=== PATIENT | female | born 1990 | race Caucasian/White ===

== ENCOUNTER 2016-09-30 20:28 | Inpatient (IN) ==
[2016-09-30] MEDS ORDERED: NS 1,000 ML IV ONE ×2 (21:36→22:42)
[2016-09-30] MEDS ORDERED: VANCOMYCIN 1 GM/NS 1 GM/250 ML IVPB IV ONE (21:37)
[2016-09-30] MEDS ORDERED: OFIRMEV 1000 MG/ISOTONIC SOLN 1,000 MG/100 ML BOTTLE IV ONE (21:37)
[2016-09-30] MEDS ORDERED: CLINDAMYCIN 600 MG/NS 600 MG/50 ML IVPB IV ONE (21:37)
[2016-09-30 22:01] LABS: MANUAL DIFF NEEDED? NO
[2016-09-30 22:04] LABS: BASO% 0.3 % (0.0-0.8); EOS# 0.03 X1000 (0.0-0.7); EOS% 0.2 % (0.0-10.0); HEMATOCRIT 41.6 % (37.0-47.0); HEMOGLOBIN 14.3 g/dL (12.0-16.0); IMM GRAN# 0.04 X1000 (0.0-0.04); IMM GRAN% 0.3 % (0.0-0.5); LYMPH# 2.03 X1000 (1.2-3.4); MCHC 34.4 g/dL (33-37); MCV 87.4 FL (81-99); MONO# 1.16 X1000 (0.11-0.59); MONO% 8.6 % (1.7-9.3); MPV 11.1 FL (7.4-10.4); NEUT% 75.6 % (42.2-75.2); PLT 241 X1000 (130-400); RBC 4.76 XMIL (4.2-5.4)
[2016-09-30 22:24] LABS: AGAP 14; ALBUMIN 4.3 g/dL (3.5-5.0); ALKALINE PHOSPHATASE 127 U/L (32-104); BUN 9 mg/dL (8-22); CHLORIDE 101 mmol/L (98-107); COSMO 271; GOT 19 U/L (10-30); GPT 24 U/L (10-36); POTASSIUM 3.5 mmol/L (3.5-5.1); SODIUM 136 mmol/L (136-145); TCO2 21 mmol/L (25-35); TOTAL PROTEIN 7.3 g/dL (6.3-8.3)
[2016-09-30] MEDS ORDERED: ZOFRAN IV ONE (22:41)
[2016-09-30] MEDS ORDERED: MORPHINE IV ONE (22:41)
[2016-09-30] MEDS ORDERED: ZOFRAN IV PRN (22:42)
[2016-09-30] MEDS ORDERED: MORPHINE IV PRN (22:42)
[2016-09-30] MEDS ORDERED: TYLENOL PO PRN (22:42)
--- NOTE | 2016-09-30 22:42 | PROVIDER DOCUMENTATION ---
This chart was entered by Roxanne Mckeon Scribe, acting as scribe for Paxton Darden PA. HPI-Animal/Snake Bite Injury - General Chief Complaint: Animal Bite Stated Complaint: ANIMAL BITE Time Seen by Provider: 09/30/16 21:11 Patient arrived via EMS?: No Source: patient Allergies/Adverse Reactions: Patient Allergies Allergy/AdvReac Type Severity Reaction Status Date / Time No Known Allergies Allergy Verified 07/26/15 13:30 Home Medications: Home Medication List Medication Instructions Recorded Confirmed Last Taken Type NK [No Home Medications] 09/30/16 09/30/16 Unknown History - History of Present Illness-Bite Injuries Nature of Presenting Problem: 26 year old F presents to the ED with a cc of a cat bite 2 days ago. Pt states that she was seen last night and prescribed antibiotics and a tetanus shot. Pt states that this morning it has gotten a lot worse. PT states that she now has a fever and the redness is spreading. Onset/Duration: 2 days ago Timing: reports: still present Locality of Occurance: Home Severity: mild Quality: painful Loss of Consciousness: no loss of consciousness Remembers:: injury, coming to hospital Similar Symptoms Previously?: No Recently seen or treated by another doctor?: Yes - Animal Bite Bite Injury Location: reports: hands Animal:: reports: cat, family pet Appearance of Animal: appeared well Observation/Capture: animal is known/can be observed 10 days Context of Attack: reports: animals fighting Severity of Bite Injury: bitten Review of Systems - Adult - REVIEW OF SYSTEMS - ADULT Constitutional: reports: fever. denies: chills Eyes: reports: no symptoms reported Ears, Nose, Mouth & Throat: reports: no symptoms reported Cardiovascular: reports: no symptoms reported Respiratory: denies: cough, shortness of breath Gastrointestinal: reports: no symptoms reported Genitourinary: reports: no symptoms reported Musculoskeletal: denies: muscle aches, muscle weakness Integumentary: reports: skin sores/ulcer. denies: skin thickening Neurological: reports: no symptoms reported Psychiatric: reports: no symptoms reported Endocrine: reports: no symptoms reported Hematologic/Lymphatic: reports: no symptoms reported Allergic/Immunologic: reports: no symptoms reported All Other Systems: Reviewed and Negative Past History - Adult - PAST MEDICAL HISTORY-ADULT Review of Records: reports: Nursing Assessment Review, Medications Reviewed Major Childhood Illnesses: reports: denies history Cardiovascular: reports: denies history Respiratory: reports: denies history Gastrointestinal: reports: denies history Obstetrical/Gynecological: reports: denies history Genitourinary: reports: chronic UTI's Musculoskeletal: reports: denies history Neurological: reports: denies history Endocrine/Immune: reports: denies history Other Conditions: reports: denies history - PRIOR SURGERIES/PROCEDURES Surgical/Procedure History: reports: cholecystectomy - IMMUNIZATION STATUS Childhood Immunizations: See Nurse Assessment Flu Vaccine: See Nurse Assessment - FAMILY HISTORY Family History: reviewed, not pertinent - SOCIAL HISTORY Smoking: cigarettes Provider spent 3-5 mins advising pt. on dangers of tobacco.: Discussed manners to quit use, and f/u contacts for add'l counseling. Substance Use: none/never Alcohol Use Frequency: never Physical Exam-General - PHYSICAL EXAM-ADULT Initial Vital Signs Reviewed: Yes - CONSTITUTIONAL General Appearance: appears well, alert, no apparent distress - RESPIRATORY Respiratory: chest non-tender, lungs clear, normal breath sounds - CARDIOVASCULAR Cardiovascular: normal peripheral pulses, regular rate, rhythm, no edema - GASTROINTESTINAL (ABDOMEN) Abdominal Exam: non tender, soft - SKIN Integumentary: erythema (circumfriential of right thumb spreading up the thumb) - PSYCHIATRIC Psych/Mental Status: normal mood/affect, normal thought content, normal thought process, oriented x 3 Progress - PLAN OF CARE/RESULTS Progress/Plan/Lab Results: Vital Signs - 8 hr 09/30/16 20:53 Temperature 100.8 F H Pulse Rate 110 H Respiratory Rate 20 Blood Pressure 155/89 O2 Sat by Pulse Oximetry 100 Laboratory Results - last 24 hr 09/30/16 09/30/16 09/30/16 21:55 21:55 21:55 WBC 13.54 H RBC 4.76 Hgb 14.3 Hct 41.6 MCV 87.4 MCH 30.0 MCHC 34.4 RDW Std Deviation 12.5 Plt Count 241 MPV 11.1 H Immature Gran % (Auto) 0.3 Neut % (Auto) 75.6 H Lymph % (Auto) 15.0 L Refugio % (Auto) 8.6 Eos % (Auto) 0.2 Baso % (Auto) 0.3 Immature Gran # (Auto) 0.04 Neut # (Auto) 10.24 H Lymph # (Auto) 2.03 Refugio # (Auto) 1.16 H Eos # (Auto) 0.03 Baso # (Auto) 0.04 Sodium 136 Potassium 3.5 Chloride 101 Carbon Dioxide 21 L Anion Gap 14 BUN 9 Creatinine 0.5 Estimated GFR/1.73 m2 > 60 BUN/Creatinine Ratio 18 Glucose 98 Calculated Osmolality 271 Calcium 9.0 Total Bilirubin 0.40 AST 19 ALT 24 Alkaline Phosphatase 127 H Total Protein 7.3 Albumin 4.3 Globulin 3.0 Albumin/Globulin Ratio 1.0 Plasma Lactate 1.1 Orders Category Date Time Status Saline Loc NOW Care 09/30/16 21:36 Active BLOOD CULTURE [BLDCUL] Stat Lab 09/30/16 21:37 Ordered CBC WITH DIFF [HEME] Stat Lab 09/30/16 21:55 Completed COMPREHENSIVE METABOLIC PANEL [CHEM] Stat Lab 09/30/16 21:55 Completed LACTATE, PLASMA [CHEM] Stat Lab 09/30/16 21:55 Completed 0.9% Sodium Chloride Inj [Ns] 1,000 ml Med 09/30/16 21:36 Discontinued IV 999 mls/hr Acetaminophen [Ofirmev 1000 mg/Isotonic Soln] Med 09/30/16 21:37 Discontinued 1,000 mg in 100 ml IV NOW Clindamycin 600 mg/Ns Med 09/30/16 21:37 Discontinued 600 mg in 50 ml IV NOW Morphine Med 09/30/16 22:41 Once 4 mg IV NOW ONE Ondansetron [Zofran] Med 09/30/16 22:41 Once 4 mg IV NOW ONE Vancomycin 1 gm/Ns Med 09/30/16 21:37 Discontinued 1 gm in 250 ml IV NOW Result Diagrams: 09/30/16 21:55 09/30/16 21:55 - CONSULTS/PCP/HOSPITALIST Notification #1 *Consult/PCP/Hospitalist*: Dr. Albright(hospitalist) Time Discussed: 22:38 Consult Disposition: Admit Departure - Departure Time of Disposition Decision: 22:41 DIAGNOSIS: Cat bite of finger Qualifiers: Encounter type: initial encounter Qualified Code(s): S61.259A - Open bite of unspecified finger without damage to nail, initial encounter; W55.01XA - Bitten by cat, initial encounter Disposition: ADMITTED INPATIENT 09 Certified Medical Emergency: Emergent Condition: Good Referrals and Follow-Ups: Garrison Huff [Primary Care Provider] - - Critical Care Note This patient required my direct & personal management of CC.: No Attestation - Physician/ MONICA Attestation Patient care was provided by Advanced Practice Provider:: Yes Advanced Practice Provider:: Paxton Darden Advanced Practice Provider documentation review:: The Mid-level provider documentation, treatment plan and medical decision making was reviewed by the physician who agrees with all treatment and medical decision making by the MLP. This chart was documented by the indicated scribe, (Roxanne Mckeon Scribe) and accurately reflects the services I performed and decisions made by Adelso knapp Steven Wesley, PA, as attested by the provider's signature.
[2016-09-30] MEDS ORDERED: NICODERM PATCH TD PRN (23:33)
[2016-10-01] MEDS ORDERED: MORPHINE IV PRN (10:58)
[2016-10-01] MEDS ORDERED: VANCOMYCIN IV PER PHARMACY MISC SCH (11:00)
--- NOTE | 2016-10-01 11:59 | Diag Imaging Result Doc PS360 ---
EXAM: HAND COMPLETE RIGHT HISTORY: right hand pain, cat bite TECHNIQUE: Three views. COMPARISON: None. FINDINGS: No fracture or dislocation is appreciated. No joint space abnormality is identified. No radiopaque foreign body is appreciated. IMPRESSION: No acute abnormalities are appreciated. Electronically signed by Arina Maria 10/01/2016 11:57 AM
[2016-10-01] MEDS: ZOSYN 3.375 GM/NS 3.375 GM/50 ML IVPB IV SCH ×4 (12:06→23:07)
[2016-10-01 12:16] LABS: HEMATOCRIT 37.8 % (37.0-47.0); HEMOGLOBIN 12.5 g/dL (12.0-16.0); MCH 29.6 PG (27-31); MCHC 33.1 g/dL (33-37); MCV 89.4 FL (81-99); MPV 11.5 FL (7.4-10.4); RBC 4.23 XMIL (4.2-5.4)
[2016-10-01 12:28] LABS: AGAP 10; BUN 8 mg/dL (8-22); CALCIUM 8.4 mg/dL (8.8-10.2); CHLORIDE 106 mmol/L (98-107); COSMO 277; POTASSIUM 3.9 mmol/L (3.5-5.1); SODIUM 139 mmol/L (136-145); TCO2 23 mmol/L (25-35)
[2016-10-01] MEDS ORDERED: VANCOMYCIN 2,000 MG in NS 500 ML IV ONE (14:00)
[2016-10-01] MEDS ORDERED: BENADRYL IV PRN (16:14)
[2016-10-01] MEDS ORDERED: SOLU-MEDROL IV ONE (16:32)
[2016-10-02] MEDS ORDERED: VANCOMYCIN 1,600 MG in NS 250 ML IV SCH (02:00)
[2016-10-02] MEDS: ZOSYN 3.375 GM/NS 3.375 GM/50 ML IVPB IV SCH ×4 (05:10→23:07)
[2016-10-02] MEDS ORDERED: NORCO-7.5 PO PRN (12:58)
--- NOTE | 2016-10-02 13:26 | PROGRESS NOTE ---
DATE: 10/02/2016 SUBJECTIVE: The patient has no focal complaints. OBJECTIVE: Blood pressure 101/50, heart rate 65, respiratory rate 18, temperature 97.8 degrees.Cardiovascular: Regular rate and rhythm. Pulmonary: Bilateral breath sounds. Clear to auscultation. GI: Soft, nontender, nondistended. Bowel sounds are positive. Extremities: No clubbing or cyanosis. Lymphatics: No peripheral edema. LABORATORY DATA: White count down to 9, hemoglobin and hematocrit 12 and 37, platelets 199,000. CMP looks okay. PROBLEM LIST: A cat bite, cellulitis of her right thumb. Clinically she is actually somewhat improved. There is less pain and less tenderness, less swelling, left erythema. She can move her thumb a little bit although still having difficulty bending it at the joint. I have discussed the case briefly with Dr. Hendricks general medical practitioner for Orthopedics. He recommends continue IV antibiotics for right now. Obviously if deteriorates she will need to be transferred for open irrigation but at this point, she clinically appears to be improving. We will continue to follow. cc: Vinay Goodwin MD
[2016-10-03] MEDS: ZOSYN 3.375 GM/NS 3.375 GM/50 ML IVPB IV SCH ×4 (05:08→23:11)
[2016-10-03 06:16] LABS: HEMATOCRIT 38.4 % (37.0-47.0); HEMOGLOBIN 12.5 g/dL (12.0-16.0); MCH 29.1 PG (27-31); MCHC 32.6 g/dL (33-37); MCV 89.3 FL (81-99); MPV 11.3 FL (7.4-10.4); RBC 4.3 XMIL (4.2-5.4)
[2016-10-03 06:31] LABS: AGAP 10; BUN 16 mg/dL (8-22); CHLORIDE 107 mmol/L (98-107); COSMO 282; POTASSIUM 3.6 mmol/L (3.5-5.1); SODIUM 141 mmol/L (136-145); TCO2 24 mmol/L (25-35)
--- NOTE | 2016-10-03 18:10 | PROGRESS NOTE ---
DATE: 10/03/2016 SUBJECTIVE: Patient has no focal complaints. OBJECTIVE: Vital signs: Blood pressure 123/84, heart rate of 65, respiratory rate 18, temperature 98.7 degrees. Cardiovascular: Regular rate and rhythm. Pulmonary: Bilateral breath sounds. Clear to auscultation. GI: Soft, nontender, nondistended. Bowel sounds are positive. Musculoskeletal: On her right thumb, the swelling has pretty much gone down to just right at the joint. Still has some redness and erythema and swelling around the DIP joint, but overall has improved. She seems to be doing okay on current antibiotic regimen. Physical examination as described. PROBLEM LIST: Cat bite, cellulitis of the right hand and thumb. Clinically she has improved on the Zosyn. I think we could probably safely discharge her on Augmentin, with close orthopedic follow up. We will continue to monitor. Anticipate discharge tomorrow if stable. cc: Vinay Goodwin MD
[2016-10-04] MEDS: ZOSYN 3.375 GM/NS 3.375 GM/50 ML IVPB IV SCH ×2 (06:05→13:37)
[2016-10-04 06:23] LABS: HEMOGLOBIN 12.5 g/dL (12.0-16.0); MCH 29.2 PG (27-31); MCHC 32.9 g/dL (33-37); MCV 88.8 FL (81-99); MPV 11.5 FL (7.4-10.4); RBC 4.28 XMIL (4.2-5.4)
[2016-10-04 08:36] VITALS: BP 95/48
--- NOTE | 2016-10-04 14:43 | DISCHARGE SUMMARY ---
ADMISSION DATE: 09/30/2016 DISCHARGE DATE: 10/04/2016 DIAGNOSES: 1. CAT scratch to right thumb. 2. Cellulitis right thumb. DIAGNOSTICS: 1. 10/01/2016 hand x-ray reveals no fracture or dislocation. No joint space abnormality. No radiopaque foreign body is appreciated. No acute abnormality. 2. Microbiology, blood cultures x2 are no growth after 48 hours. HOSPITAL COURSE: Ms. Raygoza presented to the ER complaining of a cat bite to her right thumb 2-3 days prior. She was seen at that time at [facility] and received a tetanus shot and antibiotics. She felt that her symptoms had increased with increased swelling, redness and pain. Therefore, she presented to [place] ER. At that time she had a temperature of 100.8 degrees with swelling and redness to her right thumb. Blood cultures were negative. She received antibiotic coverage of Zosyn. She was given initial dose of vancomycin and had a reaction that seems to be red man syndrome. She tolerated Zosyn well after this. PHYSICAL EXAMINATION: Cardiovascular: Regular rate and rhythm S1, S2 appreciated. Pulmonary: Breath sounds are clear. No increased work of breathing noted. Gastrointestinal: Abdomen soft, nontender, nondistended with bowel sounds in all 4 quadrants. Extremities: No clubbing, cyanosis, or edema to the left arm and bilateral lower extremities. She does have some edema to her right thumb, redness has subsided. Pulses are palpable x4. Calves are nontender. Neurologic: She is alert and oriented x3. DISCHARGE MEDICATIONS: Augmentin 875 one p.o. b.i.d. for 2 weeks. DISCHARGE FOLLOWUP: She is to call Dr. Frost's office in the morning to be seen this week and follow up. She has been instructed to return to the ER or call to be seen sooner for temperature greater than 101, increasing in pain and swelling, recurrence of redness, any drainage or for any questions or concerns that she may have. She is being discharged home in stable condition with family members. TIME SPENT: This is a greater than 30 minute discharge 12:30 to 1:05. Dictated by BRYAN Santos for Vinay Goodwin MD cc: BRYAN Santos MD
--- NOTE | 2016-10-05 04:55 | HISTORY AND PHYSICAL ---
CHIEF COMPLAINT: Right hand swelling and pain. HISTORY OF PRESENT ILLNESS: This is a 26-year-old female with hypertension who presents with pain and swelling in her right hand associated with a cat bite about 2 days ago. Apparently her cat was fighting with another dog, this is a house cat, her own cat, and accidentally bit her thumb and scratched her right forearm. She went to the ER, got a tetanus injection and was put on antibiotics, not clear what she got out on listed. In any case, she clinically worsened. She no longer can bend her thumb she has got significant swelling around her right thumb, and she was admitted for cellulitis, possible arthritis failing outpatient therapy. PAST MEDICAL HISTORY: Hypertension. PAST SURGICAL HISTORY: Denies. FAMILY HISTORY: Noncontributory but reviewed. SOCIAL HISTORY: She does smoke about less than a pack a day. No alcohol. No drugs. ALLERGIES: No known drug allergies. REVIEW OF SYSTEMS: Otherwise negative. PHYSICAL EXAMINATION: VITAL SIGNS: Blood pressure 111/66, heart rate of 81, respiratory 18, temperature 98.4 degrees. GENERAL: A well-developed female in no acute distress. HEAD: Normocephalic, atraumatic. EYES: Pupils equal, round and reactive to light. Extraocular movements were intact. EAR/NOSE/THROAT: Moist mucous membranes. NECK: Supple. CARDIOVASCULAR: Regular rate and rhythm. No murmurs, gallops, or rubs. PULMONARY: Bilateral breath sounds clear to auscultation. GI: Soft, nontender, nondistended. Bowel sounds are positive. EXTREMITIES: No clubbing or cyanosis. LYMPHATIC: She did have swelling at forearm. SKIN: She had numerous linear excoriations along her right forearm consistent with scratch ortiz, and her right thumb had an open denuded area right along the ridge of her DIP of her thumb, with a little area of abscess right at the right abscess. PROBLEM: Right forearm cellulitis abscess: We will continue empiric antibiotics. Obviously with a cat bite we have to cover for pasteurella, so we will add Zosyn to her vancomycin and follow clinically. I think she needs an orthopedic evaluation because the joint may be infected, and that may be difficult with our current situation at [place], but we will discuss with the control panel builder physician and decide about further management. We will go and get plain films and follow clinically. DISPOSITION: Pending her clinical course. cc: Dr. Refugio Goodwin MD
== END 2016-10-04 16:00 | disposition home or self-care (01) ==
LOC: P.ED 20:28 → P.MEDSURG 23:25 → SUATTDRO 23:25
PROVIDERS: ATTEND Internal Medicine